=== PATIENT | female | born 1960 | race American Indian/Alaskan Native ===

== ENCOUNTER 2018-09-17 07:57 | Day surgery (SDC) | payer MEDICARE ==
[2018-09-08 17:56] VITALS: BMI 30.3
[2018-09-17] MEDS ORDERED: Lactated Ringer's 1,000 ML IV ONE (08:54)
--- NOTE | 2018-09-17 08:57 | CP.SDSHP ---
Same Day Surgery H & P - History Proposed Procedure: Left foot revisional lapidus bunionectomy Pre-Op Diagnosis: Left foot failed lapidus bunionectomy hardware - Allergies Allergies: Allergies bacitracin Allergy (Verified 09/17/18 08:09) RASH ciprofloxacin [From Cipro] Allergy (Verified 09/17/18 08:09) RASH Sulfa (Sulfonamide Antibiotics) Allergy (Verified 09/17/18 08:09) RASH Tetanus Vaccines and Toxoid Allergy (Verified 09/17/18 08:09) RASH - Physical Exam Vital Signs: Vital Signs 09/17/18 09/17/18 08:29 08:36 Temperature 97.8 F Pulse Rate 62 62 Respiratory 20 Rate Blood Pressure 119/74 O2 Sat by Pulse 100 Oximetry - {Optional Preform as Required} Integument: WNL - Date & Time Date: 09/17/18 Time: 08:57 Short Stay Discharge - Short Stay Discharge Admitting Diagnosis/Reason for Visit: M79.672 / T84.7XX0/ M21.612/ Disposition: HOME/ ROUTINE Additional Instructions (Diet, Activity): -Prescriptions given to patient to begin today -Resume regular diet -Please keep dressing clean, dry, & intact to surgical site -Use plastic bag over bandage for showering -Remain nonweightbearing to LLE -Call clinic if you see signs of infection (redness, swelling, malodor) -Appointment with Dr. Oliver already scheduled for 09/25 -NV status intact Progress Note/Discharge Note with Instructions: Dr. Oliver recommended patient to stay for overnight observation as inpatient and have PT/OT evaluate functional status and discuss plan for post operative recovery Patient was unable to be compliant upon her last surgery which prompted the need for today revisional surgery Patient postoperatively refused to stay and elected to sign out AMA Patient was given all the risks and complications regarding leaving against medical advice including potentially causing further injury or leading to inappropriate or failed healing of the surgery Patient states that she is choosing to leave as she can be compliant on her own and accepts the responsibility of leaving the hospital against medical advice
--- NOTE | 2018-09-17 09:09 | CP.PCM.PN ---
Subjective - Date & Time of Evaluation Date of Evaluation: 09/17/18 Time of Evaluation: 08:57 - Subjective Subjective: Podiatry progress note for Dr. Oliver 58F with pmhx of GERD and gastric bypass seen and evaluated in SDS preoperatively for left foot revision of lapidus bunionectomy. States that she had the original surgery performed in December 2017. States that she was not compliant and the screws broke. States she has pain constantly at the surgical site as well as with motion of her big toe. States the pain is alleviated with medication. NPO status is confirmed. States that she has not had reactions to anesthesia in the past. Denies N/V/F/C/SOB/CP today and has no other acute complaints. PMHx: as above PSHx: gastric bypass, left TKR, choecystectomy, laminectomy x2 All: bacitracin, cipro, sulfa Objective - Vital Signs/Intake and Output Vital Signs (last 24 hours): Temp Pulse Resp BP Pulse Ox 97.8 F 62 20 119/74 100 09/17/18 08:36 09/17/18 08:36 09/17/18 08:36 09/17/18 08:36 09/17/18 08:36 - Constitutional Appears: Well, Non-toxic, No Acute Distress - Head Exam Head Exam: ATRAUMATIC, NORMOCEPHALIC - Extremities Exam Additional comments: LLE focused VASC: DP and PT pulses 2/4; cap refill <3 seconds to all digits; temp gradient warm to cool from proximal to distal; no edema noted to the lower extremity DERM: well healed scar at previous surgical site; no open lesions or wounds present; no erythema or ecchymosis appreciated ORTHO: pain on palpation along surgical site; pain on ROM at first MPJ in all directions NEURO: gross and protective sensation intact - Neurological Exam Neurological Exam: Alert, Awake, Oriented x3 - Psychiatric Exam Psychiatric exam: Normal Affect, Normal Mood Assessment and Plan - Assessment and Plan (Free Text) Assessment: 58F with pmhx of GERD, gastric bypass, and cholecystectomy seen and evaluated preoperatively for revision of left foot lapidus bunionectomy Plan: Pt was seen and examined in SDS Pt NPO status was confirmed All pre-op testing and clearance in chart Pt has exhausted all conservative treatment at this time and is opting for surgical intervention Pt was explained procedure and post-operative course All pt's questions were answered to satisfaction No guarantees were made Pt understands all risks, benefits and complications of procedure Pt will follow-up with Dr. Oliver within 1 week of surgery
[2018-09-17] MEDS ORDERED: Bupivacaine 0.5% Inj(30mL) IJ ONE (09:16)
[2018-09-17] MEDS ORDERED: Lidocaine 1% Inj (20ml) IJ ONE ×2 (09:16→10:50)
[2018-09-17] MEDS ORDERED: ceFAZolin 2 GM in Sodium Chloride 0.9% 100 ML IVPB ONE (09:16)
[2018-09-17] MEDS ORDERED: Sodium Chloride 0.9% 1,000 ML IV SCH (09:30)
[2018-09-17] MEDS ORDERED: Propofol 10 mg/ml Inj (20 ML) ONE (09:51)
[2018-09-17] MEDS ORDERED: Midazolam 2 MG/2 ML VIAL ONE (09:51)
[2018-09-17] MEDS ORDERED: Ropivacaine 0.5% 30ML IV ONE (10:07)
[2018-09-17] MEDS ORDERED: Lidocaine 1% Inj (20ml) ONE (10:29)
[2018-09-17] MEDS ORDERED: Bupivacaine 0.5% Inj(30mL) ONE (10:29)
[2018-09-17] MEDS ORDERED: Bupivacaine 0.5% 50 ML IJ ONE (10:50)
[2018-09-17] MEDS ORDERED: Dexamethasone 4 mg/1 ml ONE ×2 (10:57→12:11)
[2018-09-17] MEDS ORDERED: Sodium Chloride 0.9% 10 ML IV ONE (11:02)
[2018-09-17] MEDS ORDERED: ePHEDrine 50 mg/ml Inj ONE (11:02)
[2018-09-17] MEDS ORDERED: Dexamethasone 4 mg/1 ml IM ONE (11:45)
[2018-09-17] MEDS ORDERED: Lactated Ringer's 500 ML IV ONE ×2 (12:00→12:40)
[2018-09-17] MEDS ORDERED: Oxycodone/Acetaminophen 5/325 mg Tab PO PRN ×2 (12:40)
[2018-09-17] MEDS ORDERED: HYDROmorphone 0.5 mg/0.5 ml ISec IVP PRN (12:47)
--- NOTE | 2018-09-17 12:50 | PCM.ANESB2 ---
Popliteal Nerve Block - Popliteal Nerve Block Date of Procedure: 09/17/18 Anesthesiologist: John Paul Garibay Pre-Procedure Diagnosis: L foot hardware pain Post-Procedure Diagnosis: L foot hardware pain Procedure Performed: Popliteal Nerve Block Left - Procedure Popliteal Nerve Block: This procedure was explained to the patient that it is for post-operative pain management. Consent was obtained after a thorough discussion with the patient regarding the benefits and possible complications of local anesthetic block of the sciatic nerve at the popliteal level. The patient was brought to the operating room and standard monitors are applied. Time-out was held with the circulating nurse to confirm the correct surgery and the appropriate block. After completion of the surgery under general anesthesia, patient's operative leg was gently raised and supported and the groove in between the biceps femoris and vastus lateralis muscles was carefully palpated. The skin approximately 8cm above the popliteal crease was then marked. The ultrasound transducer was then applied to the posterior thigh approximately 8cm above the popliteal crease in the transverse plane and the sciatic nerve before its division was visualized lateral to the popliteal artery and in between the bicep femoris and semimembranosus/semitendinosus muscles. After identification, the lateral portion of the thigh was prepped with Chloraprep. At this point, a # 21 gauge Stimuplex insulated 4 inch needle was inserted into pre-marked area and advanced in a perpendicular direction. The needle was inserted above the ultrasound transducer in-plane towards the sciatic nerve in a [id number] direction. Needle advancement was performed carefully under direct ultrasound visualization. After repeated negative aspiration, 20cc of 0.5 % ropivacaine was injected in 5cc aliquots. Under ultrasound guidance the local anesthetics were observed surrounding sciatic nerve . The needle was removed intact and sterile dressing was applied. The patient tolerated the popliteal nerve block well with stable vital signs and was subsequently extubated and taken to the recovery room.
[2018-09-17 15:14] VITALS: RESP 18
[2018-09-17 15:54] VITALS: BP 142/78; PULSE 68; TEMP 97.6; O2SAT 97
--- NOTE | 2018-09-17 16:18 | PCM.SURG1 ---
Surgeon's Initial Post Op Note - Surgeon's Notes Surgeon: Dr. Oliver DPM Early Childhood Educator Aide: Dr. Small PGY 3, Dr. Joseph PGY 3 Anesthesia Administered By: Dr. Garibay Pre-Operative Diagnosis: Left foot revision of lapidus bunionectomy Operative Findings: see dictation. M: 3-0, 4-0 vicryl, 4-0 monocryl, 1cc vivigen bone matrix. I: 20cc mix 1:1 1.0% lidocaine plain, 0.5% marcaine plain preop; 1cc 4mg dexamethasone, 10 cc 0.5% marcaine plain post op Post-Operative Diagnosis: same Operation Performed: Left foot removal of hardware and revisional lapidus bunionectomy Specimen/Specimens Removed: n/a Estimated Blood Loss: EBL {In ML}: 10 Blood Products Given: N/A Drains Used: No Drains Post-Op Condition: Good Date of Surgery/Procedure: 09/17/18 Time of Surgery/Procedure: 16:20
--- NOTE | 2018-09-18 20:31 | OP ---
PROCEDURE DATE: 09/17/2018 SURGEON: Maegan Oliver DPM ASSISTANTS: Margy Small DPM, PGY-3; Isamar Joseph DPM, PGY-3 SHEAR HELPER: John Paul Garibay MD ANESTHESIA: General with popliteal block and local saphenous block. PREOPERATIVE DIAGNOSES: 1. Painful retained hardware of first tarsometatarsal joint, left foot. 2. 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 3. Possible nonunion of first tarsometatarsal joint, left foot. POSTOPERATIVE DIAGNOSES: 1. Painful retained hardware of first tarsometatarsal joint, left foot. 2. Residual hallux abductor valgus deformity, left foot. NAME OF PROCEDURE: 1. Removal of painful retained hardware of first tarsometatarsal joint, left foot. 2. Application of bone graft to first tarsometatarsal joint, left foot. INDICATION: The patient is a 58-year-old female with the above mentioned diagnoses. Of note, the patient did have surgery initially in the spring. Of note, the patient was noncompliant during her postoperative course and did admit to ambulating on the left foot postoperatively. Subsequent x-rays revealed that the patient did break the hardware within her foot secondary to noncompliance. The patient is here today for surgery with a main complaint of pain from the hardware in her left foot. The patient now requests surgical intervention. The patient signed the consent after careful explanation of all risks, benefits, complications, and alternatives for surgical procedure. No guarantees were given nor implied. Ancef IV was given to the patient prior to the procedure. N.p.o. status was confirmed prior to taking the patient to the operating room. PREPARATION: The patient was brought to the operating room and placed on the operating room table in a supine position. A well-padded pneumatic ankle tourniquet was applied to the patient's left ankle in a supramalleolar position. After induction of IV sedation, the patient received a total of 20 mL of 1:1 mixture consisting of 0.5% Marcaine plain and 1% lidocaine plain in a local block fashion to the patient's left foot. Once local anesthesia was achieved, the left foot was then prepped and draped in the usual sterile manner. Esmarch was utilized to exsanguinate the patient's left foot . The pneumatic ankle tourniquet was then inflated to 250 mmHg, and the procedure was begun. DESCRIPTION OF PROCEDURE: PROCEDURE #1: Removal of painful retained hardware of first tarsometatarsal joint, left foot. Our attention was directed over the dorsomedial aspect of the patient's first tarsometatarsal joint where a well-healed cicatrix to be appreciated. A #15 blade was used to make an approximately 8-cm linear longitudinal incision directly over the previous cicatrix. Care was taken to avoid vital neurovascular structures during the dissection and any bleeders were cauterized as necessary. There did appear to be a heavy amount of scar tissue formation within the subcutaneous layers. Again, care was taken to retract tendinous structures from the incision line at this time. Once the first tarsometatarsal joint was identified using the periosteal elevator, an approximately 8-cm linear longitudinal incision was made directly over the plate. The periosteal layer was then reflected medially and laterally, thus exposing the plate in question into the operative field. Using a Ingenic Star screwdriver, all sized screws were removed from the plate and passed from operative field. At this time, the periosteal elevator was used to elevate the plate from the bone interface, which was also passed from the operative field. Of note, the distal aspect of the screw did remain in the medial cuneiform bone as the screw did break previously and was not able to be retrieved at this time. Next, the surgical site was flushed with copious amounts of sterile normal saline solution. Any hypertrophic scar tissue was then excised and removed from the incision site and the bone. A bone rongeur was utilized to remove any osseous exostosis from the first tarsometatarsal joint and using intraoperative fluoroscopy at this time, a [place] elevator was then used in order to attempt to distract the first tarsometatarsal joint under stress. Dorsiflexion, plantar flexion, eversion, and inversion under live fluoroscopic guidance, there did appear to be no motion of that joint at this time, which led to the conclusion that this joint has already fused. The decision now was made to re-use the osteotomy in place as the bone has fused 100% at this time. PROCEDURE #2: Application of bone graft to first tarsometatarsal joint, left foot. Next, 1 mL of ViviGen bone matrix was then placed at the dorsal aspect of the first tarsometatarsal joint in order to pack any remaining areas of pseudoarthrosis at this joint. Next, the surgical site was flushed with copious amounts of sterile normal saline solution. The capsular and periosteal layers were reapproximated using 2-0 and 3-0 Vicryls. Subcuticular tissue was reapproximated using 4-0 Vicryl, and skin edges were reapproximated using 4-0 Monocryl suture in a running suture technique. Next, 1 mL consisting of 4 mg of dexamethasone was then injected into the skin surrounding the incision line. Next, additional 20 mL of 0.5% Marcaine plain was then introduced with special attention being given to the saphenous distribution of the left foot. Bandages included Steri-Strips, saline-soaked dressing with 4x4s, additional dry 4x4s, Dharmesh, and a well-padded posterior splint with the foot placed in a neutral position was then applied to the patient's left lower extremity. POSTOPERATIVE CONDITION: The patient tolerated the procedure and anesthesia well with no apparent complications or complaints. The patient was escorted to the recovery room with vital signs stable and neurovascular status intact to the patient's left foot. PLAN: The patient will be instructed nonweightbearing to the left foot with crutches. The patient will follow up with Dr. Oliver in the office within one week. Margy Small DPM Maegan Oliver DPM
== END 2018-09-17 16:05 | disposition home or self-care (01) ==
LOC: H.OPSURG 07:57
PROVIDERS: ATTEND Podiatrist Sports Medicine
DX: T84.84XA Pain due to internal orthopedic prosthetic devices, implants and grafts, initial encounter (principal); M20.12 Hallux valgus (acquired), left foot; M21.612 Bunion of left foot; M79.672 Pain in left foot; K21.9 Gastro-esophageal reflux disease without esophagitis; Z88.2 Allergy status to sulfonamides; Z90.49 Acquired absence of other specified parts of digestive tract; Z98.84 Bariatric surgery status
CPT/HCPCS: 20680; 28899; 82948; J0690; J1100; J2001; J2250; J2405; J2704; J3010; J7120